=== PATIENT | female | born 1995 | race Caucasian/White ===

== ENCOUNTER 2017-12-28 20:45 | Emergency (ER) | payer MEDICAID ==
[~2017-12-28] VITALS: Ht 152.4 cm; Wt 63.3 kg
[2017-12-28 21:03] VITALS: BP 112/66
== END 2017-12-28 23:06 | disposition left against medical advice (07) ==
LOC: ER 21:51
DX: Z53.21 Procedure and treatment not carried out due to patient leaving prior to being seen by health care provider (principal)